=== PATIENT | female | born 1955 | race Caucasian/White ===

== ENCOUNTER 2023-03-23 09:21 | Outpatient (AMB) | payer MEDICARE, MEDICAID, SELFPAY ==
--- NOTE | 2023-03-23 09:22 | MHC.OFFVIS ---
Intake Vital Signs 03/23/23 09:28 Weight 136 lb BP 112/76 Blood Pressure Location Lt brachial Position Sitting Pulse 91 Pulse Source Pulse Oximeter Pulse Oximetry (%) 96 Oxygen Delivery Method Room Air Intake Visit Reasons: F/U LAST SEEN AT [facility] - Confirmed Intake Note: F/U for hydrocephales [employer] Supervisor Required: Yes [employer] Supervisor Name: Seun Allergies amoxiciillin Adverse Reaction (Intermediate, Uncoded 03/23/23 09:25) Rash HPI HPI Comments History of Present Illness Details 67 y/o female patient presents with [facility] staff for follow up visit. Pt has hx of stable communicating hydrocephalus. She had a brain MRI done in May, 2019-which was compared to CT brain on October 2015. It was c/w ventriculomegaly out of proportion for the degree of sulcal prominence, however it was stable since 2016. Pt also has hx of psychosis, depression, anxiety and PTSD. She had a major fall about 5 years ago and had fx of left leg-tibia and fibular. Pt can walk, but refuses to walk due to fear of falling. She uses wheelchair all the time. No complains of headache. She has intermittent incontinent. Pt's memory and her cognitive function is fluctuate, but hearing care professional states that no changes since the last visit. She sees her psychiatrist every 2 months and her behavior is stable and managed well. Her behavior of biting and hitting her self has been improved a lot. [facility] Surgical History (Updated 10/15/21 @ 09:43 by MANUEL Blair) History of back surgery History of surgery on lower extremity Social History (Updated 03/23/23 @ 09:28 by Esther Holguin CMA) Alcohol intake: never Patient Tobacco Use Status: Never used Tobacco Review of Systems Const All systems reviewed & are unremarkable except as noted in HPI and below ENT Reports Normal hearing present Neuro Reports Normal hearing present Physical Exam Vital Signs: Last Vital Signs Pulse 91 03/23/23 09:28 BP 112/76 03/23/23 09:28 Pulse Ox 96 03/23/23 09:28 Oxygen Delivery Method Room Air 03/23/23 09:28 Const Other: sitting in the wheel chair. General: cooperative Nutritional Appearance: obese Orientation/consciousness: oriented to person Limitations: wheelchair Resp Effort & Inspection: normal respiratory effort and able to speak in complete sentences Neuro General: oriented to person and Unable to assess gait Cranial nerves: Yes Bilaterally intact EOM present, Yes Midline tongue present, Yes Normal hearing present, Yes Ability to bilaterally rotate head present and Yes Ability to bilaterally elevate shoulders present Gait exam (Neuro): Unable to assess gait Motor exam (neuro): 5/5 motor strength present throughout, Pronator motor function not present and no tremor noted Psych Appearance: grossly normal Attitude: cooperative Assessment & Plan Assessment & Plan (1) Communicating hydrocephalus: Code(s): G91.0 - Communicating hydrocephalus (2) Other abnormalities of gait and mobility: Code(s): R26.89 - Other abnormalities of gait and mobility Plan Will have repeat CT of brain to monitor hydrocephalus. Orders: Orders CT head/brain wo IV con Today G91.0 - Communicating hydrocephalus Coding Level of Care Code Est Pt Level 3 (70865) Diagnoses Communicating hydrocephalus G91.0 Other abnormalities of gait and mobility R26.89
[2023-03-23 09:28] VITALS: BP 112/76; PULSE 91; O2SAT 96
== END 2023-03-23 09:55 | disposition home or self-care (01) ==
PROVIDERS: Visit Provider Nurse Practitioner Family
DX: G91.0 Communicating hydrocephalus (principal); R26.89 Other abnormalities of gait and mobility
CPT/HCPCS: 99213

== ENCOUNTER → 2023-03-23 09:21 | Outpatient (BNVA) | payer MEDICARE, MEDICAID, SELFPAY | PROVIDERS: Visit Provider Nurse Practitioner Family | DX: G91.0 Communicating hydrocephalus (principal); R26.89 Other abnormalities of gait and mobility | CPT/HCPCS: 99212 ==

== ENCOUNTER 2023-05-04 10:43 | Outpatient (REF) | payer MEDICARE, MEDICAID, SELFPAY ==
--- NOTE | ~2023-05-04 | CT_ITS ---
EXAMINATION: CT head/brain wo IV con CLINICAL INFORMATION: Reason for Exam G91.0 - Communicating hydrocephalus COMPARISON: None. TECHNIQUE: Contiguous axial imaging was performed from the skull base to vertex without intravenous contrast. Sagittal and coronal reformatted images were obtained. This CT examination was performed using dose optimization techniques as appropriate, variously including the following: * Automated exposure control * Adjustment of mA and/or kV according to patient size (this includes techniques or standardized protocols for targeted exams where dose is matched to indication/reason for exam; i.e. extremities or head) Use of iterative reconstruction technique DLP: 893 mGy-cm FINDINGS: Moderate ventriculomegaly disproportionate to sulcal prominence. No territorial loss of workman-white differentiation. 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 Patchy nonspecific hypodensity throughout the supratentorial compartment predominantly in the subcortical region. No acute intracranial hemorrhage or extra-axial fluid collection. No mass lesion, significant mass effect, or herniation pattern. The orbits are grossly normal. Bilateral ostiomeatal unit obstructive pattern with completely opacified maxillary sinuses, subtotal opacification of the bilateral anterior ethmoid air cells, opacified left frontal sinus and moderate mucosal disease in the right frontal sinus. There is also significant left sphenoid sinus mucosal disease with air-fluid level and moderate right sphenoid sinus mucosal disease. Patchy hyperdense contents likely reflecting inspissated/proteinaceous contents with possible chronic fungal elements. Sclerotic wall thickening of the sinus hopkins compatible with chronic sinusitis with extension of osteitis into the pterygoid processes. Osseous structures are intact. Partially imaged elongated and ossified styloid processes can be correlated clinically for signs of [place] syndrome. CT/CT head/brain wo IV con IMPRESSION: 1. 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 2. 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 3. Patchy nonspecific white matter disease predominantly in the subcortical white matter. 4. Bilateral ostiomeatal unit obstructive pattern with completely opacified maxillary sinuses, subtotal opacification of the bilateral anterior ethmoid air cells, opacified left frontal sinus and moderate right frontal sinus mucosal disease. Significant left sphenoid sinus mucosal disease with air-fluid level and moderate right sphenoid sinus mucosal disease. Correlate clinically for superimposed acute sinusitis. Sclerotic wall thickening of the sinus hopkins compatible with chronic sinusitis. 5. Partially imaged elongated and ossified styloid processes can be correlated clinically for signs of [place] syndrome.
== END 2023-05-04 10:44 | disposition home or self-care (01) ==
LOC: HO.CT 10:43
PROVIDERS: PCP Internal Medicine; Visit Provider Nurse Practitioner Family
DX: G91.0 Communicating hydrocephalus (principal)
CPT/HCPCS: 70450

== ENCOUNTER 2024-03-21 08:51 | Outpatient (AMB) | payer MEDICARE, MEDICAID, SELFPAY ==
--- NOTE | 2024-03-21 08:53 | MHC.OFFVIS ---
Vital Signs 03/21/24 08:55 Height 4 ft 11 in Weight 130 lb BMI 26.3 BP 116/72 Blood Pressure Location Lt brachial Position Sitting Respiration 16 Pulse 68 Pulse Source Pulse Oximeter Pulse Oximetry (%) 97 Oxygen Delivery Method Room Air Intake Visit Reasons: 1 yr f/u appt for mobility and gait Intake Note: Pt presents for a one year follow up for hx of stable communicating hydrocephalus and gait and mobility issues. [employer] Technician Required: No Allergies amoxiciillin Adverse Reaction (Intermediate, Uncoded 03/21/24 08:54) Rash HPI Comments Details: 68 y/o female patient presents with [facility] for follow up visit. No change in her neurological status since last visit. No falls but rarely walks. No headaches No worsening of cognition No daytime incontinence. History from initial visit-Pt has hx of stable communicating hydrocephalus. She had a brain MRI done in May, 2019-which was compared to CT brain on October 2015. It was c/w ventriculomegaly out of proportion for the degree of sulcal prominence, however it was stable since 2016. Pt also has hx of psychosis, depression, anxiety and PTSD. She had a major fall about 5 years ago and had fx of left leg-tibia and fibular. No complains of headache. She has intermittent incontinent. Pt's memory and her cognitive function is fluctuate, but intensive care unit registered nurse states that no changes since the last visit. She sees her psychiatrist every 2 months and her behavior is stable and managed well. Her behavior of biting and hitting her self has been improved a lot. [facility] Surgical History History of back surgery History of surgery on lower extremity Social History Alcohol intake: never Patient Tobacco Use Status: Never used Tobacco Review of Systems ENT Reports Normal hearing present Neuro Reports Normal hearing present Physical Exam Vital Signs: Last Vital Signs Pulse 68 03/21/24 08:55 Resp 16 03/21/24 08:55 BP 116/72 03/21/24 08:55 Pulse Ox 97 03/21/24 08:55 Oxygen Delivery Method Room Air 03/21/24 08:55 BMI result Body Mass Index 26.3 Const Other: sitting in the wheel chair. General: cooperative Orientation/consciousness: oriented to person Limitations: wheelchair Resp Effort & Inspection: normal respiratory effort and able to speak in complete sentences Neuro General: oriented to person and Unable to assess gait Cranial nerves: Yes Bilaterally intact EOM present, Yes Midline tongue present, Yes Normal hearing present, Yes Ability to bilaterally rotate head present and Yes Ability to bilaterally elevate shoulders present Gait exam (Neuro): Unable to assess gait Motor exam (neuro): 5/5 motor strength present throughout, Pronator motor function not present and no tremor noted Psych Appearance: grossly normal Attitude: cooperative Results Reviewed Results Reviewed: CT Brain- 04/2023 There appears to be apparent diffuse cortical thickening with a degree of global undersulcation and broadened gyri and thinning of the posterior body of the corpus callosum as can be seen in lissencephaly-pachygyria spectrum and can be correlated with clinical history and more definitively assessed on MRI as warranted. 2. 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 3. Patchy nonspecific white matter disease predominantly in the subcortical white matter. 4. Bilateral ostiomeatal unit obstructive pattern with completely opacified maxillary sinuses, subtotal opacification of the bilateral anterior ethmoid air cells, opacified left frontal sinus and moderate right frontal sinus mucosal disease. Significant left sphenoid sinus mucosal disease with air-fluid level and moderate right sphenoid sinus mucosal disease. Correlate clinically for superimposed acute sinusitis. Sclerotic wall thickening of the sinus hopkins compatible with chronic sinusitis. 5. Partially imaged elongated and ossified styloid processes can be correlated clinically for signs of [place] syndrome. Assessment & Plan Assessment & Plan (1) Communicating hydrocephalus: Code(s): G91.0 - Communicating hydrocephalus Category: Medical (2) Other abnormalities of gait and mobility: Code(s): R26.89 - Other abnormalities of gait and mobility Category: Medical Plan Reviewed CT Findings c/w communicating hydrocephalus No change in her neurological status will f/u clinically Coding Level of Care Code Est Pt Level 4 (70110) Diagnoses Communicating hydrocephalus G91.0 Other abnormalities of gait and mobility R26.89
[2024-03-21 08:55] VITALS: BP 116/72; PULSE 68; RESP 16; O2SAT 97; BMI 26.3
== END 2024-03-21 09:20 | disposition home or self-care (01) ==
PROVIDERS: Visit Provider Psychiatry & Neurology Neurology
DX: G91.0 Communicating hydrocephalus (principal); R26.89 Other abnormalities of gait and mobility
CPT/HCPCS: 99214

== ENCOUNTER → 2024-03-21 08:51 | Outpatient (BNVA) | payer MEDICARE, MEDICAID, SELFPAY | PROVIDERS: Visit Provider Psychiatry & Neurology Neurology | DX: G91.0 Communicating hydrocephalus (principal); R26.89 Other abnormalities of gait and mobility | CPT/HCPCS: 99212 ==